=== PATIENT | female | born 1985 | race African-American/Black ===

== ENCOUNTER 2018-09-22 11:30 | Emergency (ER) | payer SELFPAY ==
[~2018-09-22] VITALS: Ht 157.5 cm; Wt 53.5 kg
--- NOTE | 2018-09-22 12:46 | NUR ---
Female mechanical handyman accompanied female patient for (Dr Benton). Pt has 2 small abscess, one on Left upper labia w/ drainge. 2nd one on Lt lower.
[2018-09-22] MEDS ORDERED: SULFAMETH/TRIMETH 800/160 MG TABLET ONE (12:55)
[2018-09-22] MEDS ORDERED: SULFAMETH/TRIMETH 800/160 MG TABLET PO ONE (13:00)
--- NOTE | 2018-09-22 13:06 | NUR ---
Notified Parul RED from [facility] for Psych eval, per Dr Benton request.
[2018-09-22 13:09] LABS: BASOPHILS # (AUTO) 0.1 K/uL (0.0-8.0); EOSINOPHILS # (AUTO) 0.5 K/uL (0.0-0.7); EOSINOPHILS % (AUTO) 6.5 % (0.0-7.0); HEMATOCRIT 39.1 % (31.2-41.9); HEMOGLOBIN 12.6 g/dL (10.9-14.3); LYMPHOCYTES # (AUTO) 2.3 K/uL (20.0-40.0); LYMPHOCYTES % (AUTO) 30.2 % (20.5-51.5); MEAN CORPUSCULAR HGB CONC 32 g/dL (32.3-35.6); MEAN CORPUSCULAR VOLUME 83.5 fL (75.5-95.3); MONOCYTES # (AUTO) 0.6 K/uL (2.0-10.0); MONOCYTES % (AUTO) 7.4 % (0.0-11.0); NEUTROPHILS # (AUTO) 4.1 K/uL (1.8-8.9); NEUTROPHILS % (AUTO) 54.9 % (38.5-71.5); PLATELET COUNT (AUTO) 251 K/uL (179-408); RED BLOOD CELL COUNT(AUTO) 4.68 MIL/uL (3.63-4.92); WHITE BLOOD COUNT (AUTO) 7.5 K/uL (3.8-11.8)
[2018-09-22 13:12] LABS: CARBON DIOXIDE 29 mmol/L (21-32); CHLORIDE 105 mmol/L (98-107); CREATININE 0.9 mg/dL (0.6-1.3); GLUCOSE 93 mg/dL (74-106); POTASSIUM 3.8 mmol/L (3.5-5.1); UREA NITROGEN, BLOOD 10 mg/dL (7-18)
[2018-09-22 13:15] LABS: *AMPHETAMINE, URINE NEGATIVE (NEGATIVE); *BARBITURATE, URINE NEGATIVE (NEGATIVE); *BILIRUBIN,URIN NEGATIVE (NEGATIVE); *BLOOD, URINE NEGATIVE (NEGATIVE); *CANNABINOID, URINE POSITIVE (NEGATIVE); *CLARITY,URINE CLEAR (CLEAR); *COCCAINE, URINE NEGATIVE (NEGATIVE); *COLOR,URINE YELLOW (YELLOW); *KETONES,URINE NEGATIVE (NEGATIVE); *OPIATE, URINE NEGATIVE (NEGATIVE); *PHENCYCLIDINE SCREEN,URINE NEGATIVE (NEGATIVE); *UROBILINOGEN,URINE 0.2 E.U./dl (NORMAL); LEUKOCYTE ESTERASE ,URINE NEGATIVE (NEGATIVE); NITRITE, URINE NEGATIVE (NEGATIVE); UGLUCOSE NEGATIVE (NEGATIVE)
[2018-09-22 13:18] LABS: ALANINE AMINOTRANSFERASE 23 U/L (14-59); ALKALINE PHOSPHATASE 93 U/L (50-136); ASPARTATE AMINOTRANSFERASE 16 U/L (15-37); BILIRUBIN,DIRECT 0.2 mg/dL (0.0-0.2); BILIRUBIN,TOTAL 0.4 mg/dL (0.2-1.0)
[2018-09-22 13:19] LABS: ACETAMINOPHEN < 2.0 ug/mL (10-30); ETHANOL < 3 MG/DL (0-0)
[2018-09-22 13:20] LABS: BACTERIA,URINE FEW /HPF (NONE SEEN); RBC,URINE NONE SEEN /HPF (0-3); SQUAMOUS EPITHELIAL CELL,UR FEW /HPF (NONE SEEN); WBC,URINE NONE SEEN /HPF (0-3)
--- NOTE | 2018-09-22 13:21 | NUR ---
Brittany RED from [facility] at the bedside for psych eval.
[2018-09-22 13:35] VITALS: BP 116/70
--- NOTE | 2018-09-22 14:00 | NUR ---
Patient discharged to home in stable conditon. Written and verbal after care instructions given. Patient verbalizes understanding of instructions.
== END 2018-09-22 14:00 | disposition home or self-care (01) ==
LOC: ER 11:30
DX: L02.215 Cutaneous abscess of perineum (principal); F20.9 Schizophrenia, unspecified; Z88.8 Allergy status to other drugs, medicaments and biological substances
CPT/HCPCS: 36415; 80048; 80076; 80307; 81001; 85025; 99283; G0480 ×2; G0481; A4663

== ENCOUNTER 2018-09-22 20:13 | Emergency (ER) | payer SELFPAY ==
[~2018-09-22] VITALS: Ht 157.5 cm; Wt 53.5 kg
--- NOTE | 2018-09-22 20:51 | NUR ---
Pt states she is not homeless, but "stranded" here til end of the month, states she has a room in [place] with roommates. Patient states she needs to find a long term.
--- NOTE | 2018-09-22 21:05 | NUR ---
PATIENT WAS OFFERED MEAL
--- NOTE | 2018-09-22 21:07 | NUR ---
Patient given written and verbal discharge instructions. Patient verbalizes understanding of instructions. Patient is ambulatory with steady gait. PATIENT REQUESTING CORRECTION INFO BUT NOT PLACEMENT. Patient given list of available shelters in surrounding area. WALKED OUT OF ER WITH NO DISTRESS NOTED. PATIENT HAS PROPER CLOTHING ON.
== END 2018-09-22 21:15 | disposition home or self-care (01) ==
LOC: ER 20:13
DX: Z00.00 Encounter for general adult medical examination without abnormal findings (principal); K21.9 Gastro-esophageal reflux disease without esophagitis; F17.210 Nicotine dependence, cigarettes, uncomplicated; F12.10 Cannabis abuse, uncomplicated; Z88.8 Allergy status to other drugs, medicaments and biological substances
CPT/HCPCS: A4663